=== PATIENT | male | born 1970 | race Caucasian/White ===

== ENCOUNTER 2018-09-17 13:00 | Day surgery (SDC) | payer BC, SELFPAY ==
[2018-09-17] VITALS (8 sets, daily range): BP systolic 98–146; BP diastolic 75–90; PULSE 70–79; RESP 9–16; TEMP 36.2–37; O2SAT 95–100; BMI 25.8
--- NOTE | 2018-09-17 16:02 | PM.HP.1 ---
History of Present Illness Date Patient Seen: 09/17/18 Time Patient Seen: 16:02 Chief complaint: [id number] SCREENING COLONOSCOPY Narrative: Very pleasant 48-year-old gentleman here for his 1st screening colonoscopy. He denies any changes in his bowel habits. He denies any bright red blood per rectum. He does report that he has significant reflux symptoms. He says he starts the day with Tums and Pepcid AC. He requires more medication after lunch and sometimes just before bed as well. This is been going on for many years but he has never had it evaluated. 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 He is scheduled to leave again about the 15th of this month. He would very much like to have an EGD before his return to work. His adds that he has actually gained weight. He admits that he isn't able to exercise on the boat. Patient History Surgical History Status post arthroscopy Status post hernia repair Status post knee surgery Family & Social History Family History: Reviewed 09/17/18 by Conchis Alexandre MD Social History: household members spouse Meds Home Medications Medication Instructions Recorded Confirmed Type celecoxib [Celebrex] 400 mg PO DAILY PRN 09/17/18 09/17/18 History famotidine [Pepcid AC] 10 mg PO DAILY PRN 09/17/18 09/17/18 History Allergies Allergy/AdvReac Type Severity Reaction Status Date / Time No Known Allergies Allergy Uncoded 09/17/18 14:25 Review of Systems Review of Systems All systems reviewed & are unremarkable except as noted in HPI and below Exam Vital Signs (past 8 hours): - 09/17/18 14:15 Temperature 97.2 F L Pulse Rate 78 Respiratory Rate 16 Blood Pressure 146/89 H Pulse Oximetry 100 Oxygen Delivery Method Room Air Narrative Exam Narrative: Very pleasant, well-nourished, well-developed gentleman in no distress HEENT: Normocephalic and atraumatic, pupils equal round reactive to light accommodation with anicteric sclera Lungs: Clear to auscultation bilaterally Heart: Regular rate and rhythm without murmur rub or gallop Abdomen: Soft, minimal tenderness to palpation in the epigastrium, active bowel sounds Extremities: Warm and well perfused. Assessment & Plan Plan: Assessment/Plan Narrative: Pleasant and generally healthy 48-year-old gentleman who has had years worth of reflux symptoms that have not been evaluated. Additionally, he is here for his 1st screening colonoscopy. We will complete the colonoscopy today. I have recommended that he have an EGD before returning to work. We will submit this to his insurance company. With this many years of reflux symptoms, he is certainly at risk for Diego's esophagus or other premalignant condition.
--- NOTE | 2018-09-17 16:05 | P.HP_ITS ---
History of Present Illness Date Patient Seen: 09/17/18 Time Patient Seen: 16:02 Chief complaint: [id number] SCREENING COLONOSCOPY Narrative: Very pleasant 48-year-old gentleman here for his 1st screening colonoscopy. He denies any changes in his bowel habits. He denies any bright red blood per rectum. He does report that he has significant reflux symptoms. He says he starts the day with Tums and Pepcid AC. He requires more medication after lunch and sometimes just before bed as well. This is been going on for many years but he has never had it evaluated. 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 He is scheduled to leave again about the 15th of this month. He would very much like to have an EGD before his return to work. His adds that he has actually gained weight. He admits that he isn't able to exercise on the boat. Patient History Surgical History Status post arthroscopy Status post hernia repair Status post knee surgery Family & Social History Family History: Reviewed 09/17/18 by Conchis Alexandre MD Social History: household members spouse Meds Home Medications Medication Instructions Recorded Confirmed Type celecoxib [Celebrex] 400 mg PO DAILY PRN 09/17/18 09/17/18 History famotidine [Pepcid AC] 10 mg PO DAILY PRN 09/17/18 09/17/18 History Allergies Allergy/AdvReac Type Severity Reaction Status Date / Time No Known Allergies Allergy Uncoded 09/17/18 14:25 Review of Systems Review of Systems All systems reviewed & are unremarkable except as noted in HPI and below Exam Vital Signs (past 8 hours): - 09/17/18 14:15 Temperature 97.2 F L Pulse Rate 78 Respiratory Rate 16 Blood Pressure 146/89 H Pulse Oximetry 100 Oxygen Delivery Method Room Air Narrative Exam Narrative: Very pleasant, well-nourished, well-developed gentleman in no distress HEENT: Normocephalic and atraumatic, pupils equal round reactive to light accommodation with anicteric sclera Lungs: Clear to auscultation bilaterally Heart: Regular rate and rhythm without murmur rub or gallop Abdomen: Soft, minimal tenderness to palpation in the epigastrium, active bowel sounds Extremities: Warm and well perfused. Assessment & Plan Plan: Assessment/Plan Narrative: Pleasant and generally healthy 48-year-old gentleman who has had years worth of reflux symptoms that have not been evaluated. Additionally, he is here for his 1st screening colonoscopy. We will complete the colonoscopy today. I have recommended that he have an EGD before returning to work. We will submit this to his insurance company. With this many years of reflux symptoms, he is certainly at risk for Diego's esophagus or other premalignant condition.
[2018-09-17] MEDS: MIDAZOLAM 5 MG/5 ML VIAL IV (16:15)
[2018-09-17] MEDS: fentaNYL 250 MCG/5 ML INJ IV (16:15)
--- NOTE | 2018-09-17 16:20 | PM.OP.1 ---
Operative Date/Time/Diagnoses Date of procedure: 09/17/18 Time of procedure: 16:21 Pre-op diagnosis: Screening Post-op diagnosis: same Procedure & Clinicians Procedure: Colonoscopy to the cecum Same procedure as scheduled: Yes Indications: No prior colonoscopy Surgeon: Conchis Alexandre Anesthesia Type: Sedation (Versed 6 mg; fentanyl 200 mcg) Operative Notes Findings: 1. Adequate prep 2. No polyps or mass lesions 3. No AV malformations 4. Scattered diverticulosis with the majority of the disease in the sigmoid region 5. Grade 1 internal jorden Procedure in detail: After obtaining informed consent, the patient was brought to the GI suite and placed in the left lateral decubitus position on the examination table. After placement of appropriate monitors, the patient was given incremental doses of Versed and Fentanyl until an appropriate level of sedation was achieved. A time out was held per SCOAP protocol. A digital rectal examination was performed and did not reveal any masses or obstructing lesions. The colonoscope was gently passed into the patient's anus and the entire colon navigated to the level of the cecum with minimal difficulty. Once in the cecum, the scope was withdrawn being sure to go before and beyond all mucosal folds and prominences and get an excellent examination. The findings are noted above. At the level of the rectal vault, the scope was retroflexed and the internal anal canal was examined. The scope was straightened and air aspirated from the colon. The instrument was removed from the patient's body and the procedure was concluded. The patient was allowed to awaken from sedation without difficulty and taken to the post-anesthesia care unit in good condition. Total sedation time 11 min Total withdrawal time 8 min Complications: none Condition: stable Disposition: PACU Plan for aftercare: 1. Discharge to home 2. Plan for next colonoscopy in 10 years or as clinically indicated
--- NOTE | 2018-09-17 16:51 | SUR.PHASEI ---
Tolerating PO well, skin warm and dry, resp unlabored throughout PACU. States is in waiting room.
--- NOTE | 2018-09-17 17:30 | SUR.PHASEII ---
Assumed care at 172, Was told that patient was ready to go home. He is dressed, resting on the bed. 1728 To car in by [employer]. Expressed appreciation for care.
--- NOTE | 2018-09-17 17:32 | SUR.PHASEII ---
Per RN reporting off, 900 ml NS infused.
== END 2018-09-17 17:28 | disposition home or self-care (01) ==
PROVIDERS: PCP Family Medicine; Visit Provider Surgery
PROC: 0DJD8ZZ Inspection of Lower Intestinal Tract, Via Natural or Artificial Opening Endoscopic (ICD-10-PCS; CPT 45378; principal; 2018-09-17 15:45)
DX: Z12.11 Encounter for screening for malignant neoplasm of colon (principal); K57.30 Diverticulosis of large intestine without perforation or abscess without bleeding; K64.0 First degree hemorrhoids
CPT/HCPCS: 45378; 99152; J2250; J3010

== ENCOUNTER 2018-09-19 09:30 | Day surgery (SDC) | payer BC, SELFPAY ==
[2018-09-19] VITALS (7 sets, daily range): BP systolic 89–115; BP diastolic 61–80; PULSE 66–75; RESP 7–17; TEMP 36.4–36.6; O2SAT 18–99; BMI 26.2
--- NOTE | 2018-09-19 | PATH_ITS ---
[facility] Accession Number: [id number] . 01 Material submitted: . PART A: DUODENAL BIOPSY PART B: ANTRAL BIOPSY PART C: GE JUNCTION BIOPSY . 02 Diagnosis: A. Duodenum, Biopsy: Duodenal mucosa with gastric heterotopia. Negative for intraepithelial lymphocytosis or villous blunting. Negative for dysplasia and malignancy. . B. Stomach, Antrum, Biopsy: Antral mucosa with no diagnostic abnormality. No evidence of Helicobacter on H/E stain. Negative for intestinal metaplasia. Negative for dysplasia and malignancy. . C. Gastroesophageal Junction, Biopsy: Squamocolumnar junctional mucosa with specialized intestinal metaplasia, consistent with Diego's esophagus. Negative for dysplasia and malignancy. [facility]/09/20/2018 . 02 Electronically signed: . Demetria Concepcion MD, Pathologist NPI- [id number] . 01 Gross description: . Received three formalin-filled containers, each labeled with the patient's name: . A. In a container labeled duodenal, the specimen consists of a 0.2 cm portion of tissue, entirely submitted in cassette A. B. In a container labeled antral, the specimen consists of a 0.2 cm portion of tissue, entirely submitted in cassette B. C. In a container labeled GE junction, the specimen consists of four 0.1-0.3 cm portions of tissue, entirely submitted in cassette C. ([id number]) /FRR . 02 Pathologist provided ICD-10: K22.70 . 02 CPT . 071884, 902292, [id number] Performed at: 01 [facility] [address] [place] [address] [address] [facility], [place], [place] [id number] MD Mannie Wilburn MD Phone: [phone] Performed at: 02 [facility] [place] [address] [place] [id number] MD Demetria Concepcion MD Phone: [phone]
[2018-09-19] MEDS: SODIUM CHLORIDE 0.9% 1,000 ML 150 ML IV (10:19)
--- NOTE | 2018-09-19 11:48 | PM.PREOP ---
Pre-operative Note Interval Note History & Physical reviewed/Exam performed by Physician: Yes Changes to H&P: No
[2018-09-19] MEDS: TETRACAINE/BENZOCAINE/BUTAMBEN (CETACAINE) BOTTLE 1 SPRAY TOP (12:02)
[2018-09-19] MEDS: LIDOCAINE 4% SOLN 50 ML 20 ML TOP (12:02)
[2018-09-19] MEDS: fentaNYL 250 MCG/5 ML INJ IV (12:04)
[2018-09-19] MEDS: MIDAZOLAM 5 MG/5 ML VIAL IV (12:05)
--- NOTE | 2018-09-19 12:05 | PM.OP.1 ---
Operative Date/Time/Diagnoses Date of procedure: 09/19/18 Time of procedure: 12:05 Pre-op diagnosis: Gastroesophageal reflux disease Post-op diagnosis: same Procedure & Clinicians Procedure: Esophagogastroduodenoscopy with biopsies Same procedure as scheduled: Yes Indications: No prior endoscopy Surgeon: Conchis Alexandre Anesthesia Type: Sedation (Versed 5 mg; fentanyl 200 mcg) Operative Notes Findings: 1. Superficial ulcerations in the 1st portion of the duodenum only. The remainder of the duodenum is normal 2. Gastritis affecting the pyloric channel and the pylorus itself. The remainder of the antrum and the fundus are normal 3. 5 cm hiatal hernia with significant distal esophagitis 4. Very irregular Z-line with multiple tongues of tissue consistent with Diego's changes 5. Normal posterior oropharynx Closure Type: not applicable Procedure in detail: After obtaining informed consent, the patient was brought to the GI suite and placed in the left lateral decubitus position on the examination table. After placement of appropriate monitors, the patient was given incremental doses of Versed and Fentanyl until an appropriate level of sedation was achieved. A time out was held per SCOAP protocol. A bite block was gently placed between the patient's teeth. The endoscope was lubricated and then passed into the patient's posterior oropharynx. The esophagus was cannulated under direct vision and the scope was passed to the second portion of the duodenum without difficulty. The scope was then withdrawn with careful examination of all areas of the upper GI tract and mucosa. In the stomach, the instrument was retroflexed and the GE junction examined. The scope was straightened and the procedure continued with examination of the remainder of the upper GI tract. Findings are noted above. Air was aspirated from the stomach and the endoscope gently removed from the esophagus. The patient was allowed to awaken from sedation without difficulty and taken to the post-anesthesia care unit in good condition. Complications: none Condition: stable Disposition: PACU Plan for aftercare: 1. Discharge to home 2. We will contact you with pathology results and recommendations 3. Start Protonix 20 mg b.i.d.
== END 2018-09-19 12:50 ==
LOC: ENDO 09:33
PROVIDERS: PCP Family Medicine; Visit Provider Surgery
PROC: 0DJ08ZZ Inspection of Upper Intestinal Tract, Via Natural or Artificial Opening Endoscopic (ICD-10-PCS; CPT 43235; principal; 2018-09-19 11:45)
DX: K21.0 Gastro-esophageal reflux disease with esophagitis (principal); K29.70 Gastritis, unspecified, without bleeding; K44.9 Diaphragmatic hernia without obstruction or gangrene; K26.9 Duodenal ulcer, unspecified as acute or chronic, without hemorrhage or perforation
CPT/HCPCS: 43239; J2250; J3010